=== PATIENT | female | born 1960 | race Caucasian/White ===

== ENCOUNTER 2023-03-18 11:43 | Observation (INO) | payer BC, SELFPAY ==
[2023-03-18] VITALS (15 sets, daily range): BP systolic 104–142; BP diastolic 62–89; PULSE 71–80; RESP 16–18; TEMP 36–36.6; O2SAT 98–100; BMI 21.7
--- NOTE | ~2023-03-18 | CT_ITS ---
EXAMINATION: CT abdomen pelvis w con DATE: 03/18/2023 13:01 INDICATION: Abdominal distention, nausea and vomiting TECHNIQUE: Computed tomography (CT) of the abdomen and pelvis was performed with 100 CC Omnipaque 350 intravenous contrast. Automated exposure control and iterative reconstruction technique were employe d. Exam dose: 290.82 mGy-cm total exam DLP. COMPARISON: None. FINDINGS: The lung bases are clear of infiltrate or consolidation. No pericardial or pleural effusion . 3 mm probable lateral segment left hepatic cyst. The liver is otherwise unremarkable. There is thickening of the gallbladder wall up to approximately 3 mm and suggestion of probable evelyn lithiasis. Gallbladder ultrasound would be helpful for further evaluation of suspected cholelithiasis and possible acute cholecystitis. No intrahepatic or extra hepatic bile duct or pancreatic duct dilatation. No pancreatic mass lesion o r calcification. Normal splenic size. No adrenal mass lesion. Approximately 12 mm exophytic lateral lower pole right renal cyst. 1 cm lower pole left renal cyst. Normal caliber of the abdominal aorta. No abdominal aortic aneurysm. No intraperitoneal or retroperit chakraborty or pelvic mass lesion or adenopathy or ascites. The urinary bladder, uterus and adnexal areas a re unremarkable. Normal appendix. There is diverticulosis of the left and right colon; no CT evidence of diverticulitis. There are flui d levels in the colon but no colonic wall thickening or pneumatosis or pericolic inflammation. No int raperitoneal free air is detected. Moderately prominent degenerative disc disease and mild retrolisthesis at L4-5. No suspicious osteoly tic or osteoblastic lesions. IMPRESSION: Suspected cholelithiasis and possible acute cholecystitis; gallbladder ultrasound examin ation is recommended Diverticulosis of the colon Air-fluid levels of the colon which may indicate mild colitis. Normal appendix Bilateral renal cysts Reviewed, dictated and finalized at [facility]. Reviewed, dictated and finalized at [facility]. IMPRESSION: Suspected cholelithiasis and possible acute cholecystitis; gallbla dder ultrasound examination is recommended Diverticulosis of the colon Air-fluid levels of the colon which may indicate mild colitis. Normal appendix Bilateral renal cysts
--- NOTE | ~2023-03-18 | US_ITS ---
Limited Abdominal Sonogram: Real-time sonographic imaging of the right upper quadrant was performed. Clinical History: Cholecystitis Findings: The liver appears normal with no evidence of mass lesion or bile duct dilatation. Main por alessandra vein demonstrates normal direction of flow. The gallbladder is well distended, and appears normal with no evidence of gallstone or wall thickening. The common bile duct measures 3 mm. The visualize d pancreas, aorta, and IVC are unremarkable. Impression: No significant abnormality seen. Reviewed, dictated and finalized at location . Impression: No significant abnormality seen.
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
--- NOTE | ~2023-03-18 | XR_ITS ---
XR chest 1V DATE: 03/18/2023 12:00 INDICATION: Dizziness. Seizure like activity. Fell and struck head. TECHNIQUE: AP chest COMPARISON: None FINDINGS: No pulmonary infiltrate or consolidation or pulmonary vascular congestion or pneumothorax i s evident. There is slight blunting of the costophrenic angles. Minimal bilateral pleural effusions a re not excluded. Heart size is within normal range. No hilar or mediastinal enlargement. IMPRESSION: Cannot exclude slight bilateral pleural effusions; otherwise no active cardiopulmonary di sease Reviewed, dictated and finalized at location [facility]. IMPRESSION: Cannot exclude slight bilateral pleural effusions; otherwise no act mame cardiopulmonary disease
--- NOTE | 2023-03-18 11:49 | ECG_ITS ---
Measurements Intervals [place] Rate: 73 P: 67 OR: 173 QRS: -6 QRSD: 102 T: 59 QT: 567 QTc: 625 Interpretive Statements SINUS RHYTHM POSSIBLE RIGHT ATRIAL ENLARGEMENT [0.25mV P WAVE] POSSIBLE LEFT ATRIAL ENLARGEMENT [-0.1mV P WAVE IN V1/V2] LEFT VENTRICULAR HYPERTROPHY AND ST-T CHANGE [VOLTAGE CRITERIA PLUS ST/T ABNORMALITY] NO PREVIOUS ECG AVAILABLE FOR COMPARISON Electronically Signed On 03-18-2023 12:19:01 CDT by Stacy Crandall M.D.
[2023-03-18 12:19] LABS: Glucose Point of Care 122 mg/dl (65-105)
[2023-03-18 12:23] LABS: Basophils Absolute Auto 0.1 K/mm3 (0.0-0.1); Basophils Percent Auto 0.6 % (0.2-1.2); Eosinophils Absolute Auto 0.1 K/mm3 (0-0.3); Hematocrit 40.7 % (37.0-47.0); Hemoglobin 12.4 g/dL (12.0-15.0); Immature Granulocyte Absolute 0.03 K/mm3 (0.00-0.031); Immature Granulocyte Percent A 0.3 % (0-0.5); Lymphocytes Percent Auto 8.6 % (18.3-44.2); Mean Corpuscular HGB Conc 30.5 g/dl (32-36); Mean Corpuscular Hemoglobin 26.7 pg (26-34); Mean Corpuscular Volume 87.7 fl (80-100); Mean Platelet Volume 9.4 fl (7.4-10.4); Monocytes Absolute Auto 0.8 K/mm3 (0.1-0.6); Monocytes Percent Auto 7.6 % (2.6-8.5); Neutrophils Absolute Auto 8.6 K/mm3 (1.3-6.7); Neutrophils Percent Auto 81.9 % (45.5-73.1); Platelet Count Result 501 k/mm3 (150-375); Red Blood Count 4.64 M/mm3 (4.2-5.4); Red Cell Distribution Width 18.3 % (11.5-14.5); White Blood Count 10.5 K/mm3 (4.5-10.0)
--- NOTE | 2023-03-18 12:28 | ED.SEIZURE ---
HPI - Seizure General Chief Complaint: Neuro Symptoms/Deficit Stated Complaint: seizure Time Seen by Provider: 03/18/23 12:03 History of Present Illness HPI Narrative: Patient is a 63-year-old female with a history of HCM, COPD presenting with possible seizure. Patient states that she was helping her sister in the garden when she began to feel very lightheaded. States that she went inside to sit down but she never made it to the couch. Her sister is at bedside and helps with the history. States that she then heard a loud crash and found the patient on the floor. States that she was contorted and it looked like a seizure for several minutes. She did lose bladder control. Patient was confused for several minutes after waking up. She then returned to baseline. Denies focal numbness or weakness. No chest pain. She reports chronic dyspnea. Her sister states that it seems she has been more dyspneic than normal lately. Patient states that she is also been severely nauseated for several days. States that she has been using Zofran [id number] with some relief. Also complains of worsening abdominal distention. Denies fevers or chills, cough, abdominal pain, constipation or diarrhea, dysuria, leg swelling. Related Data Home Medications Medication Instructions Recorded Confirmed alprazolam 0.25 mg tablet 0.125 mg PO HS PRN Anxiety 03/18/23 03/18/23 apixaban 5 mg tablet (Eliquis) 5 mg PO Q12H 03/18/23 03/18/23 aripiprazole 5 mg tablet 5 mg PO DAILY 03/18/23 03/18/23 bumetanide 1 mg tablet 1 mg PO DAILY 03/18/23 03/18/23 buspirone 30 mg tablet 30 mg PO Q12H 03/18/23 03/18/23 duloxetine 30 mg capsule,delayed 90 mg PO DAILY 03/18/23 03/18/23 release fluticasone fur. 200 mcg-umeclid 1 inh inhalation DAILY 03/18/23 03/18/23 62.5 mcg-vilant 25 mcg inhalat.powder (Trelegy Ellipta) gabapentin 600 mg tablet 600 mg PO TID PRN Pain 03/18/23 03/18/23 mavacamten 5 mg capsule (Camzyos) 5 mg PO DAILY 03/18/23 03/18/23 pantoprazole 40 mg tablet,delayed 40 mg PO DAILY 03/18/23 03/18/23 release potassium chloride 20 mEq 20 meq PO Q12H 03/18/23 03/18/23 tablet,extended release tizanidine 4 mg tablet 4 mg PO TID PRN Pain 03/18/23 03/18/23 topiramate 50 mg tablet 50 mg PO DAILY 03/18/23 03/18/23 trazodone 50 mg tablet 50 mg PO HS 03/18/23 03/18/23 Allergies Allergy/AdvReac Type Severity Reaction Status Date / Time moxifloxacin [From Avelox] AdvReac Nausea Verified 03/19/23 08:04 Review of Systems Review of Systems: All systems reviewed & are unremarkable except as noted in HPI and below PMFSH Past Medical History Medical History Chronic anticoagulation Chronic obstructive pulmonary disease Hypertrophic cardiomegaly Surgical History Surgical History (Updated 03/18/23 @ 17:13 by Krissy Nagel PA-C) Status post ablation of atrial fibrillation Family History Family History (Updated 03/18/23 @ 18:47 by Amalia Shelton RN) Mother Lung cancer Depression Anemia Father Lung cancer Cerebrovascular accident Depression Social History Social History (Updated 03/18/23 @ 17:15 by Krissy Nagel PA-C) Social History: Surrogate medical decision maker: Bailey Us, sister. Code status: Full code. Smoking packs per day: 1 Smoking cigarettes per day: 20.0 Years smoked: 18 Smoking pack-years: 18.00 Smoking status: Former smoker Alcohol intake: current Drinks per week: 4 Substance use: never Substance use type: does not use Lack of Transportation: No Lack of Food: Never True Current Housing: I Have Housing Concerned About Future Housing: No Difficulty Paying Gas/Electric Bills: No Difficulty Paying for Meds: No Currently Unemployed: No Education: Bachelor's Degree Difficulty w/ Childcare or Family Care: No Additional living arrangements comments: Patient lives in [place], [place].
[2023-03-18] MEDS: SODIUM CHLORIDE 0.9% IV 1,000 ML 999 ML IV CONT (12:34)
[2023-03-18] MEDS: ONDANSETRON INJ 4 MG/2 ML VIAL IV PUSH (12:34)
[2023-03-18 12:37] LABS: INR 1.3; Prothrombin Time 16.6 Seconds (11.1-14.7)
[2023-03-18 12:38] LABS: Alanine Aminotransferase 28 U/L (6-35); Albumin Level 4.6 g/dL (3.5-5.1); Alkaline Phosphatase 111 U/L (38-126); Anion Gap 6 mmol/L (8-16); Aspartate Amino Transferase 52 U/L (14-36); Bilirubin,Total 0.6 mg/dL (0.2-1.3); Blood Urea Nitrogen 10 mg/dL (7-17); Calcium 8.6 mg/dL (8.4-10.2); Carbon Dioxide 35 mmol/L (22-30); Chloride 91 mmol/L (98-107); Estimated CRCL calculation 57 ml/min; Estimated Glomerular Filt Rate > 60; Glucose 131 mg/dL (65-110); Partial Thromboplastin Time 32.9 SECONDS (22.3-36.8); Potassium 3.7 mmol/L (3.4-5.0); Sodium 132 mmol/L (137-145)
[2023-03-18 12:52] LABS: Troponin I 0.023 ng/mL (0.000-0.034)
[2023-03-18 13:41] LABS: Add Urine Microscopic? NO; Appearance Urine Clear (Clear); Bilirubin Urine Negative (Negative); Blood Urine Negative (Negative); Color Urine Yellow (Yellow); Glucose Urine UA Negative (Negative); Ketones Urine Negative (Negative); Leukocyte Esterase Ur Negative LEU/UL (Negative); Nitrate Urine Negative (Negative); Protein Urine Negative (Negative); Specific Grav Ur 1.013 (1.001-1.035); pH Urine 7.5 (5.0-9.0)
[2023-03-18 13:48] LABS: Lipase 147 U/L (23-300); Magnesium 2.2 mg/dL (1.6-2.3)
[2023-03-18 13:58] LABS: NT Pro B Type Natriuretic Pept 1640 pg/mL (19.9-100)
[2023-03-18 14:38] LABS: Lactic Acid Reflex 1.1 mmol/L (0.7-2.0)
--- NOTE | 2023-03-18 16:33 | PM.IMHP ---
H&P: HPI History of Present Illness Date/Time: 03/18/23 15:45 Chief Complaint: Loss of consciousness. Narrative: This is a very pleasant 63-year-old female with hyper-trophic cardiomyopathy, atrial fibrillation status post cardiac ablation on chronic anticoagulation, and chronic obstructive pulmonary disease who presented to the ED via private vehicle accompanied by her sister for evaluation of loss of consciousness. She is from [place] and is in the area visiting family members. Over the past 14 months or so her quality of life has not been great with little energy, fatigue, and dyspnea on exertion. She was started on a new drug, Camzyos, several months ago by her oracle security consultant for her cardiomyopathy and as of yet she has not noticed much change in her symptoms. In any event, last evening she went to a visitation service and to a gathering thereafter which left her exhausted. This morning she did not do much but rest. Not long prior to arrival she was in the kitchen helping her sister stock the refrigerator with water bottles and she began to feel quite weak so she went to the living room to sit down. Her sister reports hearing a thud and she found the patient unconscious on the floor with tremors of the upper and lower extremities. Sister reports that her extremities looked contorted and she reports that the patient was incontinent of urine. She believes the patient was postictal upon coming to as she was confused for several minutes thereafter. The patient has a hematoma on her posterior scalp but denies any other obvious injuries and there was no tongue bite noted. Her vital signs were stable on arrival. Brain CT showed a cephalohematoma in the right parietal region but no acute intracranial abnormalities. She complained of nausea and vomiting and a CT of the abdomen and pelvis showed suspected cholelithiasis with possible acute cholecystitis and air-fluid levels of the colon which may indicate mild colitis. Abdominal ultrasound was without significant abnormalities, however and her abdominal exam was benign. She goes on to say that this has been an ongoing issue for a couple of years and she has been taking Zofran around the clock for several months to combat her symptoms. Labs were significant for a WBC count of 10.5, sodium 132, potassium 3.7, chloride 91, in 2.2, carbon dioxide 35, lactic acid 1.1, troponin 0.023, proBNP 1640, total bilirubin 0.6, AST 52, ALT 20, alkaline phosphatase 111, lipase 147. EKG showed sinus rhythm with possible biatrial enlargement and LVH with ST T wave changes and a QTC of 567 and a QTc of 625. ED physician spoke with the patient's oracle security consultant, Dr. Oralia Mehta (cell phone [phone]) and he recommends holding Camzyos for several days due to the QT prolongation. The patient is being admitted in this setting for close monitoring overnight. At the time my evaluation she complains of a headache from the subdural hematoma on her scalp. She denies fever, chills, sweats, cold and flu symptoms, chest pain, pleuritic pain, palpitations, sensations of racing heart, and abdominal pain. Review of Systems Review of Systems: Twelve systems were reviewed. No history of seizures. She denies focal weakness and paresthesias. The last couple of years she has had ongoing issues with abdominal distension cough, nausea, and occasional vomiting. Initially her symptoms started with a 40 lb weight gain and she was aggressively diuresed though her abdomen remained distended. She does see a new autos delivery driver but only once a year and she has never had an endoscopy for evaluation. She denies significant belching. She has chronic constipation and typically has bowel movement once a week. No melena or hematochezia. No dysuria. Denies concerns for urinary retention. Except as documented all other systems were reviewed and are negative. [facility] Past Medical History Medical History Chronic anticoagulation
--- NOTE | 2023-03-18 16:55 | PM.CNCAR ---
Assessment and Plan Assessment and plan (1) Syncope: Code(s): R55 - Syncope and collapse Status: Acute Assessment and Plan: Probably due to prolonged QT interval (which is probably acquired as she has no prior history of prolonged QT interval) and due to combination of Camzyos and anti-nausea medication. Stop Camzyos and anti-nausea medication. Monitor on telemetry. Obtain echo in AM. Check EKG in AM for improvement in QT interval. (2) Hypertrophic cardiomyopathy: Code(s): I42.2 - Other hypertrophic cardiomyopathy Status: Acute Assessment and Plan: Will hold off on Camzyos (half-life 6-9 days). If continues to have ventricular arrhythmias with normalized QT interval then consider ICD implant prior to discharge. Continue beta irwin. (3) Prolonged QT interval: Code(s): R94.31 - Abnormal electrocardiogram [ECG] [EKG] Status: Acute Assessment and Plan: Monitor serial EKG. Mag rider 2 gm IV x1 now. History of Present Illness History of Present Illness Consult date/time: 03/18/23 16:55 Reason For Visit: seizure Narrative: 63 yr old woman presented to ER with syncope. Her regular financial coordinator is Dr. Mehta in [place], [place]. She has a history of HOCM, COPD, anxiety/depression. She is visiting her sister who lives in [place], [place] from [place]. She was loading water into the refrigerator when she felt dizziness/lightheadedness. She started to walk from mud room into kitchen when she passed out. Her sister was present and saw that she had contorted fingers and toes during this and was out for 3 minutes. She did fall backward and hit her head. Normally she can walk 1/2 mile and limited by CAMPOS. Denies chest pain, sob, orthopnea, PND, edema. She was started on new HOCM medication called Camzyos which can cause arrhythmias. She admits to taking an anti-nausea medication daily for 1 week now. Review of Systems Review of Systems: All systems reviewed & are unremarkable except as noted in HPI and below Cardiovascular: Cardiovascular: Reports as per HPI, Denies chest pain, Reports irregular heart rhythm, Denies leg edema and Reports lightheadedness Respiratory: Respiratory: Reports as per HPI and Denies dyspnea Gastrointestinal: Gastrointestinal: Reports as per HPI, Denies abdominal pain and Reports nausea Genitourinary: Genitourinary: Reports as per HPI and Denies dysuria Musculoskeletal: Musculoskeletal: Reports as per HPI Neurologic: Reports as per HPI, Reports dizziness and Reports syncope Meds Home Medications and Allergies Allergies Allergy/AdvReac Type Severity Reaction Status Date / Time moxifloxacin [From Avelox] Allergy Nausea Verified 03/18/23 11:44 Vital Signs Vital Signs - 24 hr 03/18/23 11:53 03/18/23 12:21 03/18/23 12:25 Temperature 97.8 F Pulse Rate 71 73 72 Respiratory Rate 18 16 18 Blood Pressure 105/79 136/89 136/89 Pulse Oximetry 100 100 100 Oxygen Delivery Room Air Room Air 03/18/23 12:26 03/18/23 12:26 03/18/23 12:29 Temperature Pulse Rate 72 71 Respiratory Rate 18 Blood Pressure 136/89 Pulse Oximetry 100 100 Oxygen Delivery Room Air 03/18/23 15:01 03/18/23 16:00 Temperature Pulse Rate 77 74 Respiratory Rate 18 17 Blood Pressure 127/85 136/83 Pulse Oximetry 100 98 Oxygen Delivery Exam Const: General: cooperative, healthy appearing and comfortable Resp: Auscultation: clear to auscultation bilaterally, no crackles, no rales, no rhonchi and no wheezes Cardio: Rate: regular rate Rhythm: regular rhythm Heart sounds: no murmurs Peripheral pulses: dorsalis pedis present GI: GI Palp: No abdominal tenderness and Yes Soft to palpation Neuro: General: oriented to person, oriented to place and oriented to time Extrem: Right lower extremity: no edema Left lower extremity: no edema Results Labs and Meds 03/18/23 12:18 03/18/23 12:18 Lab results: Cardiac En
[2023-03-18] MEDS: HYDROcodone/acetaminophen (*CRX) 5-325 MG TABLET 1 TAB PO (17:16)
[2023-03-18] MEDS: MAGNESIUM SULF 2 GM/WATER 50ML 2 GM/50 ML BAG IVPB (17:18)
--- NOTE | 2023-03-18 18:18 | ADMGEN ---
This patient, Naima Hernandez, was admitted to IMU Room 232-01 on 03/18/23 at 1755. Patient/family oriented to hospital policies and general routines including ID bracelet, bed and alarms, visiting hours, pain management, procedures, bathroom and other care routines, personal items, smoking policy, room service/diet, and visiting hours. Information on how to activate the Rapid Response Team has been discussed. Patient/Family are encouraged to report perceived risks to care and to ask questions if they do not understand what they are told or what they should do.
[2023-03-18] MEDS: POTASSIUM CHLORIDE 20 MEQ TABLET.ER PO (22:08)
[2023-03-18] MEDS: ALPRAZolam (*CRX) 0.125 MG TABLET PO (22:16)
[2023-03-18] MEDS: busPIRone HCL 10 MG TABLET 30 MG PO (22:16)
[2023-03-19] VITALS (19 sets, daily range): BP systolic 108–155; BP diastolic 65–97; PULSE 74–86; RESP 18–20; TEMP 36.2–36.9; O2SAT 96–100
--- NOTE | 2023-03-19 | ECHO_ITS ---
Patient Info Name: Naima Hernandez Age: 63 years : 1960 Gender: Female Ht: 65 in Wt: 140 lbs BSA: 1.71 m2 HR: 82 bpm BP: 124 / 83 mmHg Technical Quality: Good Exam Date: 03/19/2023 8:45 AM Exam Location: [facility] Patient Status: Inpatient Admit Date: 03/18/2023 Staff Ordering Physician: hCris Rodriguez DO Director Enterprise Sales: Antonina Llamas RDCS, RT Attending Provider: Citlali Garg DO Referring Physician: Michael CURRY; Exam Type: CA echo doppler color flow Study Info Indications I42.1 - Obstructive hypertrophic cardiomyopathy Complete two-dimensional, color flow and Doppler transthoracic echocardiogram is performed. Summary 1. Complete two-dimensional, color flow and Doppler transthoracic echocardiogram is performed. 2. Left ventricular chamber dimension is normal. 3. Left ventricular systolic function is normal, estimated at 65-70%. 4. There is mild concentric increased left ventricular wall thickness. 5. Basal septum is 2.1 cm and basal posterior wall is 1.7 cm, mild resting LVOT peak gradient 8 mmHg and mean 4 mmHg. This is suggestive of hypertrophic cardiomyopathy. 6. The left ventricular diastolic function is abnormal. 7. E/e' 24 is elevated. 8. Global longitudinal strain is abnormal at -11.9%. 9. Left atrial chamber dimension is severely enlarged. 10. There is moderate mitral valve regurgitation. 11. There is trace tricuspid valve regurgitation. 12. Mild pulmonary hypertension, estimated pulmonary arterial systolic pressure is 45 mmHg. Left Ventricle E/e' 24 is elevated. Global longitudinal strain is abnormal at -11.9%. Basal septum is 2.1 cm and basal posterior wall is 1.7 cm, mild resting LVOT peak gradient 8 mmHg and mean 4 mmHg. This is suggestive of hypertrophic cardiomyopathy. Left ventricular chamber dimension is normal. Left ventricular systolic function is normal, estimated at 65-70%. There is mild concentric increased left ventricular wall thickness. The left ventricular diastolic function is abnormal. Right Ventricle Right ventricular chamber dimension is normal. Right ventricular systolic function is normal. Left Atria Left atrial chamber dimension is severely enlarged. Right Atria Right atrial chamber dimension is normal. Aortic Valve The aortic valve is trileaflet. There is mild aortic valve sclerosis. There is no aortic valve stenosis. There is no aortic valve regurgitation. Pulmonic Valve There is no pulmonic regurgitation. Mitral Valve There is no mitral valve stenosis. There is moderate mitral valve regurgitation. Tricuspid Valve There is trace tricuspid valve regurgitation. Mild pulmonary hypertension, estimated pulmonary arterial systolic pressure is 45 mmHg. Pericardium/Pleural There is no pericardial effusion. Inferior Vena Cava Normal inferior vena cava with >50% collapse upon inspiration consistent with normal right atrial pressure, 5 mmHg. Aorta The aortic root size at the sinus of Valsalva is normal. Left Ventricular Outflow Tract Name Value Normal LVOT 2D LVOT Diameter 1.9 cm LVOT Doppler LVOT Peak Gradient 9 mmHg LVOT Mean Gradient 5 mmHg LVOT VTI 29 cm
[2023-03-19 04:58] LABS: Hemoglobin 12.5 g/dL (12.0-15.0); Mean Corpuscular HGB Conc 30.5 g/dl (32-36); Mean Corpuscular Hemoglobin 27.4 pg (26-34); Mean Corpuscular Volume 89.9 fl (80-100); Mean Platelet Volume 9.6 fl (7.4-10.4); Platelet Count Result 448 k/mm3 (150-375); Red Blood Count 4.56 M/mm3 (4.2-5.4); Red Cell Distribution Width 18.3 % (11.5-14.5); White Blood Count 7.1 K/mm3 (4.5-10.0)
[2023-03-19 05:11] LABS: Anion Gap 6 mmol/L (8-16); Blood Urea Nitrogen 8 mg/dL (7-17); Calcium 8.5 mg/dL (8.4-10.2); Carbon Dioxide 30 mmol/L (22-30); Chloride 102 mmol/L (98-107); Estimated CRCL calculation 57 ml/min; Estimated Glomerular Filt Rate > 60; Glucose 112 mg/dL (65-110); Magnesium 2.8 mg/dL (1.6-2.3); Potassium 3.8 mmol/L (3.4-5.0); Sodium 138 mmol/L (137-145)
--- NOTE | 2023-03-19 06:46 | ECG_ITS ---
Measurements Intervals [place] Rate: 71 P: 79 [place]: 176 QRS: -11 QRSD: 96 T: 52 QT: 418 QTc: 457 Interpretive Statements SINUS RHYTHM WITH SINUS ARRHYTHMIA LEFT VENTRICULAR HYPERTROPHY AND ST-T CHANGE [VOLTAGE CRITERIA PLUS ST/T ABNORMALITY] COMPARED TO ECG 03/18/2023 12:10:09 NO SIGNIFICANT CHANGE Electronically Signed On 03-19-2023 16:25:12 CDT by Aram Vazquez M.D.
--- NOTE | 2023-03-19 07:58 | PM.PNCARD ---
Progress Note: A&P Assessment and Plan (1) Syncope: Code(s): R55 - Syncope and collapse Status: Acute Assessment and Plan: Probably from ventricular arrhythmia due to prolonged QT interval (which is probably acquired as she has no prior history of prolonged QT interval) and due to combination of Tilosyn and Zofran (and possibly Camzyos). Hold Camzyos and stop Zofran. Will call her regular motor vehicle lecturer in [place] to discuss Camzyos. Monitor on telemetry. Obtain echo. Check EKG improvement in QT interval. (2) Hypertrophic cardiomyopathy: Code(s): I42.2 - Other hypertrophic cardiomyopathy Status: Acute Assessment and Plan: Will hold off on Camzyos (half-life 6-9 days). If continues to have ventricular arrhythmias with normalized QT interval then consider ICD implant prior to discharge. If no ventricular arrhythmias, then will discharge with a Life Vest. Continue Metoprolol Tartate 50 mg BID. (3) Prolonged QT interval: Code(s): R94.31 - Abnormal electrocardiogram [ECG] [EKG] Status: Acute Assessment and Plan: Monitor serial EKG. Given Mag rider 2 gm IV x1. (4) PAF (paroxysmal atrial fibrillation): Code(s): I48.0 - Paroxysmal atrial fibrillation Status: Acute Assessment and Plan: Was on Tikosyn which is discontinued due to prolonged QT interval as above. On Eliquis which is on hold due to extracranial hematoma from fall. Subjective Date/time seen: 03/19/23 07:58 Interval history: Denies chest pain or sob. Exam Const: General: cooperative, healthy appearing and comfortable Orientation/consciousness: oriented to person, oriented to place and oriented to time Resp: Auscultation: clear to auscultation bilaterally, no crackles, no rales, no rhonchi and no wheezes Cardio: Rate: regular rate Rhythm: regular rhythm Heart sounds: no murmurs Peripheral pulses: dorsalis pedis present Neuro: General: oriented to person, oriented to place and oriented to time Extrem: Right lower extremity: no edema Left lower extremity: no edema Objective Data Vital Signs Vital Signs: Vital Signs - 24 hr 03/18/23 11:53 03/18/23 12:21 03/18/23 12:25 Temperature 97.8 F Pulse Rate 71 73 72 Respiratory Rate 18 16 18 Blood Pressure 105/79 136/89 136/89 Pulse Oximetry 100 100 100 Oxygen Delivery Room Air Room Air 03/18/23 12:26 03/18/23 12:26 03/18/23 12:29 Temperature Pulse Rate 72 71 Respiratory Rate 18 Blood Pressure 136/89 Pulse Oximetry 100 100 Oxygen Delivery Room Air 03/18/23 15:01 03/18/23 16:00 03/18/23 17:55 Temperature 96.8 F L Pulse Rate 77 74 80 Respiratory Rate 18 17 16 Blood Pressure 127/85 136/83 121/73 Pulse Oximetry 100 98 100 Oxygen Delivery 03/18/23 17:33 03/18/23 18:15 03/18/23 18:15 Temperature Pulse Rate Respiratory Rate Blood Pressure 127/73 134/79 121/79 Pulse Oximetry Oxygen Delivery 03/18/23 17:55 03/18/23 18:00 03/18/23 19:41 Temperature 97.8 F Pulse Rate 80 78 Respiratory Rate 18 Blood Pressure 124/66 Pulse Oximetry 100 Oxygen Delivery Room Air 03/18/23 19:58 03/18/23 19:58 03/18/23 19:58 Temperature Pulse Rate Respiratory Rate Blood Pressure 142/66 H 122/73 104/62 Pulse Oximetry Oxygen Delivery 03/18/23 20:00 03/18/23 22:00 03/19/23 00:00 Temperature 97.7 F Pulse Rate 77 78 80 Respiratory Rate 18 Blood Pressure 108/65 Pulse Oximetry 97 Oxygen Delivery 03/19/23 00:00 03/19/23 02:00 03/19/23 04:00 Temperature Pulse Rate 80 80 79 Respiratory Rate Blood Pressure Pulse Oximetry Oxygen Delivery 03/19/23 04:00 03/19/23 04:00 03/19/23 05:59 Temperature 97.6 F Pulse Rate 80 79 Respiratory Rate 18 Blood Pressure 124/83 Pulse Oximetry 99 Oxygen Delivery Room Air 03/19/23 07:38 Temperature 97.1 F L Pulse Rate 75 Respiratory Rate 18 Blood Pressure 144/90 H Pulse Oximetry 100 O
[2023-03-19] MEDS: DULoxetine HCL 30 MG CAPSULE.DR 90 MG PO (09:42)
[2023-03-19] MEDS: TOPIRAMATE 25 MG TABLET 50 MG PO (09:43)
[2023-03-19] MEDS: POTASSIUM CHLORIDE 20 MEQ TABLET.ER PO ×2 (09:43→20:51)
[2023-03-19] MEDS: METOPROLOL TARTRATE 50 MG TAB PO ×2 (09:43→20:51)
[2023-03-19] MEDS: busPIRone HCL 10 MG TABLET 30 MG PO ×2 (09:44→20:51)
[2023-03-19] MEDS: BUMETANIDE 1 MG TABLET PO (09:44)
[2023-03-19] MEDS: HYDROcodone/acetaminophen (*CRX) 5-325 MG TABLET 1 TAB PO (11:06)
--- NOTE | 2023-03-19 14:33 | PM.IMPN ---
Progress Note: A&P Assessment and Plan (1) Syncope: Code(s): R55 - Syncope and collapse Status: Acute (2) Observed seizure-like activity: Code(s): R56.9 - Unspecified convulsions Status: Acute (3) Prolonged QT interval: Code(s): R94.31 - Abnormal electrocardiogram [ECG] [EKG] Status: Acute (4) Hypertrophic cardiomyopathy: Code(s): I42.2 - Other hypertrophic cardiomyopathy Status: Acute (5) Chronic anticoagulation: Code(s): Z79.01 - long term care administrator (current) use of anticoagulants Status: Acute (6) Chronic obstructive pulmonary disease: Code(s): J44.9 - Chronic obstructive pulmonary disease, unspecified Status: Acute Plan 03/19/2023: the patient presented to the emergency department for evaluation of an unresponsive episode. she is from [place] and in the area visiting family members. recently started on camzyos for cardioyopathy. See was found unconscious on floor with tremors of her upper and lower extremity. Incontinent of urine. She was confused for several minutes thereafter. Has thus hematoma her posterior scalp.. EKG in the ED showed a significantly prolonged QT interval QTC of 650. Her seizure-like activity could be myoclonic jerks due to cerebral hypoperfusion from dysrhythmia/syncope. She sees a diesel mechanic construction in [facility] would recommended holding her camzyos for couple days and to monitor. Underlying history of hypertrophic obstructive cardiomyopathy. She was also feeling nauseous for past few days and has been taking Zofran multiple times per day for several months. This was given by her GI doctor a year ago. Cardiology has been consulted. No arrhythmias has been evident so far on the telemetry monitoring. EEG is ordered for possible seizure. Other QT prolonging agents has been held labs reviewed. Vitals stable. Echo with EF 65-70% moderate MR trace TR mild pulmonary hypertension. Mild resting LVOT. EKG monitoring. History of proximal atrial fibrillation. Was on Tikosyn which was discontinued due to prolonged QT Subjective Date/time seen: 03/19/23 14:33 Interval history: No overnight events. Telemetry reviewed. Denies any chest pain. Came in with syncope. Review of Systems Review of Systems: All systems reviewed & are unremarkable except as noted in HPI and below Exam Narrative: General: Well-developed, nontoxic-appearing female in supine position in bed in no acute distress. HEENT: Cephalohematoma with the high right parietal region. PERRL, EOMI. Sclera anicteric. Oral mucosa moist. Neck: Supple. No midline vertebral tenderness. No JVD. Respiratory: Lungs are clear to auscultation bilaterally. Cardiovascular: Regular rate and rhythm with S1-S2. Systolic murmur at the left sternal border. Gastrointestinal: Abdomen is full a bit distended with increased tympany. No organomegaly or ascites appreciated. No significant tenderness to palpation. Positive bowel sounds. Skin: Warm and dry. No rash or lesions on limited exam. Extremities: No cyanosis, clubbing, or edema. Radial and pedal pulses intact. Neurological: Alert and oriented x4. Cranial nerves 2-12 are grossly intact. No gross focal deficits to casual conversation. Psychiatric: Pleasant and cooperative with normal mood and affect. Judgment and insight intact. Objective Data Vital Signs Vital Signs: Vital Signs - 24 hr 03/18/23 15:01 03/18/23 16:00 03/18/23 17:55 Temperature 96.8 F L Pulse Rate 77 74 80 Respiratory Rate 18 17 16 Blood Pressure 127/85 136/83 121/73 Pulse Oximetry 100 98 100 Oxygen Delivery 03/18/23 17:33 03/18/23 18:15 03/18/23 18:15 Temperature Pulse Rate Respiratory Rate Blood Pressure 127/73 134/79 121/79 Pulse Oximetry Oxygen Delivery 03/18/23 17:55 03/18/23 18:00 03/18/23 19:41 Temperature 97.8 F Pulse Rate 80 78 Respiratory Rate 18 Blood Pressure 124/66 Pulse Oximetry 100 Oxy
[2023-03-19] MEDS: ALPRAZolam (*CRX) 0.125 MG TABLET PO (20:52)
[2023-03-20] VITALS (9 sets, daily range): BP systolic 158–163; BP diastolic 86–91; PULSE 68–80; RESP 18–20; TEMP 36.3–36.4; O2SAT 96–98
[2023-03-20] MEDS: ACETAMINOPHEN 500 MG TABLET 1000 MG PO (04:32)
[2023-03-20 05:04] LABS: Basophils Absolute Auto 0.1 K/mm3 (0.0-0.1); Basophils Percent Auto 0.9 % (0.2-1.2); Eosinophils Absolute Auto 0.3 K/mm3 (0-0.3); Hematocrit 41.4 % (37.0-47.0); Hemoglobin 12.5 g/dL (12.0-15.0); Immature Granulocyte Absolute 0.01 K/mm3 (0.00-0.031); Immature Granulocyte Percent A 0.2 % (0-0.5); Lymphocytes Absolute Auto 1.02 K/mm3 (0.9-3.2); Lymphocytes Percent Auto 18.1 % (18.3-44.2); Mean Corpuscular HGB Conc 30.2 g/dl (32-36); Mean Corpuscular Hemoglobin 27.1 pg (26-34); Mean Corpuscular Volume 89.6 fl (80-100); Mean Platelet Volume 9.5 fl (7.4-10.4); Monocytes Absolute Auto 0.4 K/mm3 (0.1-0.6); Monocytes Percent Auto 7.5 % (2.6-8.5); Neutrophils Absolute Auto 3.8 K/mm3 (1.3-6.7); Neutrophils Percent Auto 68.3 % (45.5-73.1); Platelet Count Result 401 k/mm3 (150-375); Red Blood Count 4.62 M/mm3 (4.2-5.4); Red Cell Distribution Width 18.4 % (11.5-14.5); White Blood Count 5.6 K/mm3 (4.5-10.0)
[2023-03-20 05:18] LABS: Alanine Aminotransferase 23 U/L (6-35); Albumin Level 3.9 g/dL (3.5-5.1); Alkaline Phosphatase 88 U/L (38-126); Anion Gap 7 mmol/L (8-16); Aspartate Amino Transferase 31 U/L (14-36); Bilirubin,Total 0.4 mg/dL (0.2-1.3); Blood Urea Nitrogen 6 mg/dL (7-17); Calcium 8.7 mg/dL (8.4-10.2); Carbon Dioxide 27 mmol/L (22-30); Chloride 101 mmol/L (98-107); Estimated CRCL calculation 65 ml/min; Estimated Glomerular Filt Rate > 60; Glucose 124 mg/dL (65-110); Magnesium 2.3 mg/dL (1.6-2.3); Potassium 3.7 mmol/L (3.4-5.0); Sodium 135 mmol/L (137-145)
--- NOTE | 2023-03-20 06:43 | ECG_ITS ---
Measurements Intervals [place] Rate: 71 P: 81 HI: 187 QRS: -10 QRSD: 94 T: 37 QT: 416 QTc: 455 Interpretive Statements SINUS RHYTHM LEFT VENTRICULAR HYPERTROPHY WITH ST-T CHANGES COMPARED TO ECG 03/19/2023 11:34:19 NO SIGNIFICANT CHANGES Electronically Signed On 03-20-2023 14:13:17 CDT by Stacy Crandall M.D.
--- NOTE | 2023-03-20 08:04 | PM.PNCARD ---
Progress Note: A&P Assessment and Plan (1) Syncope: Code(s): R55 - Syncope and collapse Status: Acute Assessment and Plan: She had syncopal episode due to cardiac arrest from VT or VF likely. Probably from ventricular arrhythmia due to prolonged QT interval (which is probably acquired as she has no prior history of prolonged QT interval) and due to combination of Tikosyn and Zofran (and possibly Camzyos). Hold Camzyos and stop Zofran. Spoke to her regular teletypesetter, Dr. Chandra in [place], [place] who is agreeable to holding Camzyos until she returns to them for f/u. He is also agreeable to stopping Tikosyn. Monitor on telemetry without arrhythmias. EKG showed QTc 457 ms on 03/19/23. 03/19/23 Echo: EF 65-70%, basal septum 2.1 cm and basal posterior wall 1.7 cm, resting LVOT peak 8 mmHg and mean 4 mmHg s/o HOCM, diastolic dysfunction with E/e' 24, severe LAE, mod MR, trace TR, RVSP 45 mmHg. Life vest ordered and will be placed today. Once placed, patient may d/c home from cardiology standpoint and f/u with her regular teletypesetter in [place], [place] within a week. (2) Hypertrophic cardiomyopathy: Code(s): I42.2 - Other hypertrophic cardiomyopathy Status: Acute Assessment and Plan: Will hold off on Camzyos (half-life 6-9 days). If continues to have ventricular arrhythmias with normalized QT interval then consider ICD implant prior to discharge. If no ventricular arrhythmias, then will discharge with a Life Vest. Increase Metoprolol Tartate 100 mg BID due to high BP. (3) Prolonged QT interval: Code(s): R94.31 - Abnormal electrocardiogram [ECG] [EKG] Status: Acute Assessment and Plan: Monitor serial EKG. Given Mag rider 2 gm IV x1. (4) PAF (paroxysmal atrial fibrillation): Code(s): I48.0 - Paroxysmal atrial fibrillation Status: Acute Assessment and Plan: Was on Tikosyn which is discontinued due to prolonged QT interval as above. On Eliquis which is on hold due to extracranial hematoma from fall. Subjective Date/time seen: 03/20/23 08:04 Interval history: Denies chest pain or sob. Exam Const: General: cooperative, healthy appearing and comfortable Orientation/consciousness: oriented to person, oriented to place and oriented to time Resp: Auscultation: clear to auscultation bilaterally, no crackles, no rales, no rhonchi and no wheezes Cardio: Rate: regular rate Rhythm: regular rhythm Heart sounds: no murmurs Peripheral pulses: dorsalis pedis present Neuro: General: oriented to person, oriented to place and oriented to time Extrem: Right lower extremity: no edema Left lower extremity: no edema Objective Data Vital Signs Vital Signs: Vital Signs - 24 hr 03/19/23 09:34 03/19/23 09:43 03/19/23 12:00 Temperature Pulse Rate 78 Respiratory Rate Blood Pressure Pulse Oximetry 100 Oxygen Delivery Room Air Room Air 03/19/23 12:00 03/19/23 10:00 03/19/23 12:00 Temperature 97.1 F L Pulse Rate 86 83 82 Respiratory Rate 18 Blood Pressure 135/80 Pulse Oximetry 100 Oxygen Delivery 03/19/23 14:00 03/19/23 16:00 03/19/23 09:00 Temperature Pulse Rate 77 76 Respiratory Rate Blood Pressure 143/85 H Pulse Oximetry Oxygen Delivery 03/19/23 14:00 03/19/23 16:00 03/19/23 16:00 Temperature 98.5 F Pulse Rate 77 Respiratory Rate 18 Blood Pressure 136/97 H 140/89 Pulse Oximetry 100 Oxygen Delivery Room Air 03/19/23 18:00 03/19/23 20:00 03/19/23 20:04 Temperature Pulse Rate 74 Respiratory Rate Blood Pressure 148/95 H 143/97 H Pulse Oximetry Oxygen Delivery 03/19/23 20:04 03/19/23 20:04 03/19/23 20:51 Temperature 97.8 F Pulse Rate 78 78 Respiratory Rate 20 Blood Pressure 155/94 H 148/95 H Pulse Oximetry 100 Oxygen Delivery 03/19/23 20:00 03/19/23 20:00 03/19/23 22:00 Temperature Pulse Rate 78 78 76 Respiratory Rate 20 Blood Pressure
[2023-03-20] MEDS: FLUTICASONE/UMECLIDIN/VILANTER 200-62.5-25 MCG ELLIPTA 1 PUFF INHALATION (09:23)
[2023-03-20] MEDS: BUMETANIDE 1 MG TABLET PO (09:52)
[2023-03-20] MEDS: POTASSIUM CHLORIDE 20 MEQ TABLET.ER PO (09:52)
[2023-03-20] MEDS: busPIRone HCL 10 MG TABLET 30 MG PO (09:52)
[2023-03-20] MEDS: TOPIRAMATE 25 MG TABLET 50 MG PO (09:52)
[2023-03-20] MEDS: METOPROLOL TARTRATE 50 MG TAB 100 MG PO (09:52)
[2023-03-20] MEDS: DULoxetine HCL 30 MG CAPSULE.DR 90 MG PO (09:52)
--- NOTE | 2023-03-20 09:56 | WPDNEUROLOGY ---
Neurology EEG Report General Information Date of Study: 03/19/23 TEST Routine EEG DIAGNOSIS Seizure-like activity CONDITION OF RECORDING Awake, drowsy EEG NUMBER [id number] CLINICAL HISTORY Patient reports she lost consciousness for a few seconds yesterday associated with urinary incontinence. EEG DESCRIPTION During the awake state with eyes closed the background consists of 8 Hz posterior dominant rhythm which attenuates appropriately with eye opening. The recording is continuous. There is a well developed anterior-posterior gradient. No significant asymmetries of background activities are noted. With drowsiness there is waxing and waning of the dominant rhythm with eventual replacement by a mixture of beta, alpha, and theta activity. Patient did not enter stage II sleep. There are no epileptiform discharges or seizures during this recording. Hyperventilation and photic stimulation were not performed. IMPRESSION This is a normal routine EEG recorded in awake and drowsy states. There are no electrographic seizures identified, nor are there any epileptiform discharges. Please note that a normal EEG cannot exclude a seizure disorder. Clinical correlation is recommended.
--- NOTE | 2023-03-20 10:37 | PM.DS ---
DS: Admitting Diagnosis Discharge Date 03/20/2023 Admitting Diagnosis Syncope DS: Discharge Diagnosis Discharge Diagnosis (1) Syncope: Code(s): R55 - Syncope and collapse Status: Acute (2) Observed seizure-like activity: Code(s): R56.9 - Unspecified convulsions Status: Acute (3) Prolonged QT interval: Code(s): R94.31 - Abnormal electrocardiogram [ECG] [EKG] Status: Acute (4) Hypertrophic cardiomyopathy: Code(s): I42.2 - Other hypertrophic cardiomyopathy Status: Acute (5) Chronic anticoagulation: Code(s): Z79.01 - shelter (current) use of anticoagulants Status: Acute (6) Chronic obstructive pulmonary disease: Code(s): J44.9 - Chronic obstructive pulmonary disease, unspecified Status: Acute DS: Summary Hospital Course Hospital Course: the patient presented to the emergency department for evaluation of an unresponsive episode. she is from [place] and in the area visiting family members. recently started on camzyos for cardiomyopathy.? See was found unconscious on floor with tremors of her upper and lower extremity.? Incontinent of urine.? She was confused for several minutes thereafter.? Has cephalhematoma in her posterior scalp..? EKG in the ED showed a significantly prolonged QT interval QTC of 650.? Her seizure-like activity could be myoclonic jerks due to cerebral hypoperfusion from dysrhythmia/syncope.? She sees a supervisor drying and softening in [place] would recommended holding her camzyos for couple days and to monitor.? She was also on dofetilide which was. Underlying history of hypertrophic obstructive cardiomyopathy.? She was also feeling nauseous for past few days and has been taking Zofran multiple times per day for several months.? This was given by her GI doctor a year ago.? Cardiology has been consulted.? No arrhythmias has been evident so far on the telemetry monitoring.? EEG is ordered for possible seizure which came back normal. Other QT prolonging agents has been held labs reviewed.? Vitals stable.? Echo with EF 65-70% moderate MR trace TR mild pulmonary hypertension.? Mild resting LVOT.? EKG monitoring.? History of proximal atrial fibrillation.? Was on Tikosyn which was discontinued due to prolonged QT. LifeVest was recommended by the supervisor drying and softening and ordered for her at discharge. She will follow-up with her regular supervisor drying and softening in [facility] within a week for further recommendations. Time Spent with Patient Time attestation: Total time spent providing and/or coordinating discharge services: 35 minute Exam Narrative: General: Well-developed, nontoxic-appearing female in supine position in bed in no acute distress. HEENT: Cephalohematoma with the high right parietal region. PERRL, EOMI. Sclera anicteric. Oral mucosa moist. Neck: Supple. No midline vertebral tenderness. No JVD. Respiratory: Lungs are clear to auscultation bilaterally. Cardiovascular: Regular rate and rhythm with S1-S2. Systolic murmur at the left sternal border. Gastrointestinal: Abdomen is full a bit distended with increased tympany. No organomegaly or ascites appreciated. No significant tenderness to palpation. Positive bowel sounds. Skin: Warm and dry. No rash or lesions on limited exam. Extremities: No cyanosis, clubbing, or edema. Radial and pedal pulses intact. Neurological: Alert and oriented x4. Cranial nerves 2-12 are grossly intact. No gross focal deficits to casual conversation. Psychiatric: Pleasant and cooperative with normal mood and affect. Judgment and insight intact. DS: Data Data Completed and Pending Completed studies during hospitalization: Neurology EEG Report General Information Date of Study: 03/19/23 TEST Routine EEG DIAGNOSIS Seizure-like activity CONDITION OF RECORDING Awake, drowsy EEG NUMBER [id number] CLINICAL HISTORY Patient reports she lost consciousness for a few seconds yesterday associated with urinary incontinenc
== END 2023-03-20 15:28 | disposition home or self-care (01) ==
LOC: ANHED 13:38 → ANHIMU 19:25
PROVIDERS: Emergency Medicine; Physician Assistant; Admitting Provider Student in an Organized Health Care Education/Training Program; Emergency Provider Emergency Medicine; Visit Provider Internal Medicine
DX: R55 Syncope and collapse (principal); R56.9 Unspecified convulsions; R94.31 Abnormal electrocardiogram [ECG] [EKG]; I42.2 Other hypertrophic cardiomyopathy; J44.9 Chronic obstructive pulmonary disease, unspecified; S00.83XA Contusion of other part of head, initial encounter; W19.XXXA Unspecified fall, initial encounter; R06.09 Other forms of dyspnea; G31.9 Degenerative disease of nervous system, unspecified; I48.0 Paroxysmal atrial fibrillation; I51.7 Cardiomegaly; R41.0 Disorientation, unspecified; R11.2 Nausea with vomiting, unspecified; R14.0 Abdominal distension (gaseous); I67.2 Cerebral atherosclerosis; R90.82 White matter disease, unspecified; K57.30 Diverticulosis of large intestine without perforation or abscess without bleeding; N28.1 Cyst of kidney, acquired; Z79.01 Long term (current) use of anticoagulants; Z79.51 Long term (current) use of inhaled steroids; Z79.899 Other long term (current) drug therapy
CPT/HCPCS: 36415; 70450; 71045; 74177; 76705; 80048; 80053; 81003; 82948; 83605; 83690; 83735; 83880; 84443; 84484; 85025; 85027; 85610; 85730; 93005; 93306; 94640; 95816; 96361; 96374; 96375; 99285; A9270; G0378; J2405; J3475; J7030; Q9967